=== PATIENT | female | born 1945 | race African-American/Black ===

== ENCOUNTER 2020-08-17 14:11 | Emergency (ER) | payer OTHER ==
[~2020-08-17] VITALS: Ht 157.5 cm; Wt 103.4 kg
[2020-08-17 14:23] VITALS: BP 137/78
[2020-08-17] MEDS ORDERED: TORADOL IV STA (14:45)
[2020-08-17] MEDS ORDERED: ROBAXIN PO STA (14:45)
--- NOTE | 2020-08-17 14:52 | ER.PDOC ---
General Chief Complaint: Extremities Stated Complaint: R HIP/LEG PAIN Time seen by MD: 14:35 Source: patient Exam Limitations: no limitations History of Present Illness Initial Comments 74-year-old female presents to the emergency department with complaint of right leg pain for 1 week. Patient states she has history of same last episode 2 years ago. At that time she was seen by a sports medicine physician she cannot remember the diagnosis but states they informed her to do certain stretches to help improve the pain. She states she did that at the time and it did help. Today she has been having pain for a week after a 6-hour drive from [place] 2 weeks ago. Patient denies any falls or other trauma. She denies any paresthesias. She denies any weakness. She has been taking ibuprofen for pain which she states helps temporarily. She denies any bowel bladder dysfunction. Timing/Duration: other (1 weeks) Severity/Quality: moderate Radiation: upper legs (Upper right leg) Associated Symptoms: denies symptoms Past Medical History Medical History: diabetes, high cholesterol, hypertension Surgical History: tubal Social History Alcohol Use: none Drug Use: none Review of Systems Constitutional: no symptoms reported Respiratory: no symptoms reported Gastrointestinal: no symptoms reported Musculoskeletal: other (Right leg painDescribed as [id number]) Skin: no symptoms reported Physical Exam General Appearance: No Apparent Distress HEENT: PERRL/EOMI, Normal ENT Inspection Neck: Normal Inspection, Other (Normal range of motion) Cardiovascular/Respiratory: Regular Rate, Rhythm Back: Normal Inspection Extremities: No Evidence of Injury, Other (Pain with straight leg raise at 120 degrees. Tenderness to palpation of right [place] over sciatic nerve.) Neuro/Psych: Alert Skin: Normal Color Results/Orders Results/Orders Orders - CHAD CURRAN MD Ketorolac Tromethamine (Toradol) (08/17/20 14:45) Methocarbamol (Robaxin) (08/17/20 14:45) Ketorolac Tromethamine (Toradol) (08/17/20 14:57) Methocarbamol (Robaxin) (08/17/20 14:57) Vital Signs Date Time Temp Pulse Resp B/P (MAP) Pulse Ox O2 Delivery O2 Flow Rate FiO2 08/17/20 15:30 134/72 (92) 99 08/17/20 14:23 98.0 90 18 137/78 (97) 99 Room Air 4/19/21 14:23 98.0 90 18 08/17/20 14:23 98.0 90 16 99 Administered Medications Medications (Trade) Dose Ordered Sig/Nicolette Route PRN Reason Start Time Stop Time Status Last Admin Dose Admin Ketorolac Tromethamine (Toradol) 15 mg OT STAT IV 08/17/20 14:45 08/17/20 14:49 DC 08/17/20 15:05 15 MG Methocarbamol (Robaxin) 500 mg STAT STAT PO 08/17/20 14:45 08/17/20 14:49 DC 08/17/20 14:59 500 MG Progress Progress Patient reevaluated at 1530. She states she feels better. She was able to sit up stand up and ambulate with much improved pain. She states she is not pain- free but that she feels a lot better and is comfortable going home. She will be given a prescription for Toradol as well as Robaxin which is what she received here in the emergency department. Patient was advised on light stretching exercises the positive effects of weight loss and proper shoes patient will be discharged at this time. ER DEPART Departure Time of Disposition: 15:32 Disposition: 01 HOME, SELF-CARE Impression: Primary Impression: Sciatica Condition: Stable Referrals: PCP,UNKNOWN (PCP) PRIMARY CARE PROVIDER Duration or Time Spent with Pa: 12 CHAD CURRAN MD Aug 17, 2020 14:52
[2020-08-17] MEDS ORDERED: ROBAXIN ONE (14:57)
[2020-08-17] MEDS ORDERED: TORADOL ONE (14:57)
[2020-08-17 15:30] VITALS: BP 134/72
== END 2020-08-17 15:45 | disposition home or self-care (01) ==
LOC: ER 14:11
DX: M54.31 Sciatica, right side (principal); I10 Essential (primary) hypertension; E78.00 Pure hypercholesterolemia, unspecified; E11.9 Type 2 diabetes mellitus without complications; Z79.1 Long term (current) use of non-steroidal anti-inflammatories (NSAID)
CPT/HCPCS: 96374; 99284; J1885